=== PATIENT | male | born 1965 | race Caucasian/White ===

== ENCOUNTER 2016-10-11 19:22 | Emergency (ER) | payer MEDICARE, OTHER ==
[2016-10-11 19:33] VITALS: RESP 16; TEMP 98.3
[2016-10-11] MEDS ORDERED: Lidocaine 1% Inj (20ml) INFIL STA (19:55)
[2016-10-11] MEDS ORDERED: Lidocaine 1% Inj (20ml) ONE (19:57)
--- NOTE | 2016-10-11 20:06 | C.PDOC ---
History Of Present Illness Patient is a 51 year old male presents to ED with complaints of painful mass to right shine area for 4 days. He reports he was seen at [facility] 2 days ago and given prescription for Bactrim which he has taken with no relief. He reports area appears larger. Denies any fever or drainage. Time Seen by Provider: 10/11/16 19:52 Chief Complaint (Nursing): Abnormal Skin Integrity History Per: Patient History/Exam Limitations: no limitations Onset/Duration Of Symptoms: Days (4) Current Symptoms Are (Timing): Still Present Location Of Injury: Right: Leg, Anterior: Leg Quality Of Symptoms: Painful. denies: Draining Recent travel outside of the [place]: No Additional History Per: Patient Past Medical History Reviewed: Historical Data, Nursing Documentation, Vital Signs Vital Signs: Last Vital Signs Temp 98.3 F 10/11/16 19:31 Pulse 72 10/11/16 20:21 Resp 16 10/11/16 20:21 BP 134/86 10/11/16 20:21 Pulse Ox 97 10/11/16 22:29 - Medical History PMH: Anxiety, Back Problems (bulging disc), Bipolar Disorder, COPD, HTN, Hypercholesterolemia, Rheumatoid Arthritis Denies: Chronic Kidney Disease Surgical History: [place] [facility] [place] 1 [facility] unknown, total of 4) Family History: States: Unknown Family Hx - Social History Hx Alcohol Use: No Hx Substance Use: No - Immunization History Hx Tetanus Toxoid Vaccination: No Hx Influenza Vaccination: No Hx Pneumococcal Vaccination: No Review Of Systems Except As Marked, All Systems Reviewed And Found Negative. Constitutional: Negative for: Fever, Chills Skin: Positive for: Other (Painful mass to right shine area) Neurological: Negative for: Weakness, Numbness Physical Exam - Physical Exam Appears: Non-toxic, No Acute Distress Skin: Warm, Dry, Other (2x2cm fluctuant erythematous tender mass to right middle anterior tibial region) Extremity: Normal ROM, No Deformity Pulses: Left Dorsalis Pedis: Normal, Right Dorsalis Pedis: Normal Neurological/Psych: Oriented x3, Normal Speech, Normal Cognition ED Course And Treatment O2 Sat by Pulse Oximetry: 97 (on RA) Pulse Ox Interpretation: Normal - Incision & Drainage Of Abscess Anesthesia: Lidocaine 1% Prep Used: Betadine Procedure: Incised W/Scalpel Blade#: (11), Drained Pus, Irrigated Cavity W/ Saline, Cultures Obtained And Sent To Lab Medical Decision Making Medical Decision Makin51 year old male with abscess to right leg. I&D performed, patient tolerated well. Instruct to continue taking Bactrim and finish course, change dressing daily. Wound culture can take 2-3 days for results. Disposition Counseled Patient/Family Regarding: Need For Followup - Disposition Disposition: HOME/ ROUTINE Disposition Time: 20:07 Condition: STABLE Additional Instructions: Keep area clean and dry. May wash gently with soap and water, do not use alcohol or iodine solution. Change dressing 1-2 times daily. If wound culture was performed, call back [phone] for results in 2-3 days for results to confirm antibiotic is treating well. Instructions: Abscess Incision and Drainage (ED) Forms: Work Excuse - POA Present On Arrival: None - Clinical Impression Clinical Impression: Abscess of leg - PA / HOSPITAL SUPERINTENDENT / Resident Statement MD/DO has reviewed & agrees with the documentation as recorded. - Scribe Statement The provider has reviewed the documentation as recorded by the Olvinibmeri Gayle All medical record entries made by the Jose were at my direction and personally dictated by me. I have reviewed the chart and agree that the record accurately reflects my personal performance of the history, physical exam, medical decision making, and the department course for this patient. I have also personally directed, reviewed, and agree with the discharge instructions and disposition.
[2016-10-11 20:22] VITALS: BP 134/86; PULSE 72
[2016-10-11 21:56] VITALS: O2SAT 97
== END 2016-10-11 20:20 | disposition home or self-care (01) ==
LOC: C.ER 19:22
DX: L02.415 Cutaneous abscess of right lower limb (principal)